=== PATIENT | male | born 1985 | race Caucasian/White ===

== ENCOUNTER 2024-07-13 19:14 | Emergency (ER) | payer BC ==
[~2024-07-13] VITALS: Ht 175.3 cm; Wt 72.6 kg
[2024-07-13 19:48] VITALS: BP 136/85; TEMP 98; O2SAT 99
[2024-07-13] MEDS: CELLULOSE,OXIDIZED 1 PKT EACH MC ONE (20:00)
[2024-07-13] MEDS ORDERED: GELATIN SPONGE,ABSORBABLE 1 EA SPONGE TP ONE (20:00)
[2024-07-13] MEDS ORDERED: CEPH-570 PO (20:49)
[2024-07-13] MEDS ORDERED: MUPI22OI7 TP (20:49)
== END 2024-07-13 21:34 | disposition home or self-care (01) ==
LOC: ER 19:29
DX: S61.312A Laceration without foreign body of right middle finger with damage to nail, initial encounter (principal); E78.5 Hyperlipidemia, unspecified; Z79.899 Other long term (current) drug therapy; W25.XXXA Contact with sharp glass, initial encounter; W45.8XXA Other foreign body or object entering through skin, initial encounter; Y93.89 Activity, other specified; Y92.89 Other specified places as the place of occurrence of the external cause; Y99.8 Other external cause status
CPT/HCPCS: 73140-TC